=== PATIENT | male | born 1950 | race Native Hawaiian/Other Pacific Islander ===

== ENCOUNTER 2018-09-21 04:11 | Emergency (ER) | payer OTHER ==
[~2018-09-21] VITALS: Ht 185.4 cm; Wt 86.6 kg
[2018-09-21 05:19] VITALS: BP 129/86; TEMP 97.2
[2018-09-21] MEDS ORDERED: LORA1TAB17 PO (12:12)
[2018-09-21] MEDS ORDERED: LORA2INJ21 INJ (12:14)
[2018-09-21] MEDS ORDERED: MEMANTINE HCL10 MG PO (12:17)
[2018-09-21] MEDS ORDERED: QUET100T2 PO (12:18)
[2018-09-21] MEDS ORDERED: QUET200T28 PO (12:19)
[2018-09-21] MEDS ORDERED: QUETIAPINE400 MG PO (12:19)
[2018-09-21] MEDS ORDERED: RIVASTIGMINE4.5 MG PO (12:20)
[2018-09-21] MEDS ORDERED: TRAZ100T PO (12:21)
[2018-09-21 22:21] LABS: POTASSIUM 4.6 mmol/L (3.6-5.2)
[2018-09-21 22:33] LABS: PLATELET COUNT 194 K/uL (142-355)
== END 2018-09-21 05:19 | disposition other institution (70) ==
LOC: ED 04:11
PROVIDERS: Emergency Medicine
DX: F03.91 Unspecified dementia, unspecified severity, with behavioral disturbance (principal); Z04.6 Encounter for general psychiatric examination, requested by authority
CPT/HCPCS: 36415; 80053; 81000; 85027; 93005; 99285